=== PATIENT | female | born 1955 | race Caucasian/White ===

== ENCOUNTER → 2019-05-29 | Outpatient (CLI) | payer BC | LOC: CARD 11:12 | PROVIDERS: ATTEND Family Medicine | DX: R00.2 Palpitations (principal) ==

== ENCOUNTER → 2020-09-30 | Outpatient (CLI) | payer BC ==
[~2020-09-30] MED LIST: ATOR40TA70 PO; MTP100TCR PO
== END | disposition home or self-care (01) ==
LOC: PREOP 05:36
PROVIDERS: ATTEND Internal Medicine
DX: Z01.818 Encounter for other preprocedural examination (principal)

== ENCOUNTER 2020-10-01 07:30 | Day surgery (SDC) | payer BC ==
--- NOTE | 2020-09-30 18:42 | HISTORY AND PHYSICAL ---
DATE OF SERVICE: COLONOSCOPY HISTORY AND PHYSICAL DATE OF ADMISSION: ____. HISTORY OF PRESENT ILLNESS: The patient is a 65-year-old white female referred by Dr. Carranza for screening colonoscopy. She reported one other screening colon 13 years ago that she believes was normal. She is deemed to be of average risk as she is not aware of any family history for colon cancer. She does report symptoms suspicious for IBS-D, sometimes, she will have constipation alternating as well with bloating, passage of mucus at times without blood and urgency at times. She reports that her mother has similar symptoms. She denies change in weight or bright red blood per rectum or melena. She is deemed to be in her usual state of health. PAST MEDICAL HISTORY: Significant for hypertension and hyperlipidemia with no known history of coronary artery disease. MEDICATIONS: Include metoprolol succinate 100 mg daily and atorvastatin 10 mg daily. PAST SURGICAL HISTORY: She had a craniotomy in 2000 for what turned out to be a benign growth with no subsequent neurologic problem. SOCIAL HISTORY: She is , employed with no past smoking or drinking history. FAMILY HISTORY: Father in his mid 80s of complications of diabetes and heart disease. Mother is living in her late 80s with history of hypertension, hyperlipidemia and acquired spinal stenosis and with no history of malignancy. One living sibling sister with no reported health problems. REVIEW OF SYSTEMS: CONSTITUTIONAL: The patient denies change in weight, night sweats, chills or fevers, fully COVID vaccinated. PULMONARY: Denies cough, wheezing or shortness of breath. CARDIOVASCULAR: Denies heart racing, palpitation, chest pain, syncope or presyncope. GASTROINTESTINAL: As noted in the HPI. PHYSICAL EXAMINATION: GENERAL: Reveals a well-appearing white female in no acute distress. VITAL SIGNS: Weight 183 pounds. Initial blood pressure 156/86. Repeated 140/82. HEENT: Unremarkable. Sclerae nonicteric. CHEST: Clear. CARDIOVASCULAR: Reveals a regular rate and rhythm without murmur, S3 or S4. ABDOMEN: Soft, supple without mass, organomegaly or tenderness. EXTREMITIES: Reveal no cyanosis, clubbing or edema. ASSESSMENT AND PLAN: The patient is being set up for screening colonoscopy under Diprivan base anesthesia with likely history of IBS-D. Prep instructions and Suprep kit were given and questions were answered. I thank you for the referral of this pleasant lady. Job ID: [id number] DocumentID: [id number] Dictated Date: 09/29/2020 15:23:40 Embalmer/Funeral Director Date: 09/29/2020 15:39:43 Dictated By: CHRISTIANO CHERY MD
[~2020-10-01] VITALS: Ht 170 cm; Wt 82.0 kg
[2020-10-01 07:55] VITALS: BP 180/94
[2020-10-01] MEDS ORDERED: LACTATED RINGERS 1,000 ML IV STA (07:59)
[2020-10-01] MEDS ORDERED: LIDOCAINE JELLY 2% 6 ML SYRINGE MM PRN (08:00)
[2020-10-01] MEDS ORDERED: LACTATED RINGERS 1,000 ML IV ONE (08:05)
--- NOTE | 2020-10-01 08:08 | Pre-Op Note & Conscious Sedat ---
Pre-Operative Progress Note H&P Reviewed The H&P was reviewed, patient examined and no changes noted. Date H&P Reviewed: Oct 01, 2020 Time H&P Reviewed: 07:45 Conscious Sedation Pre-Proced ASA Score 2 For ASA 3 and 4: Consider anesthesia and medical clearance. Also, for patients with a history of failed moderate sedation consider anesthesia. Airway Lungs Heart ASA score ASA 1: a normal healthy patient ASA 2: a patient with a mild systemic disease (mid diabetes, controlled hypertension, obesity ASA 3: a patient with a severe systemic disease that limits activity (angina, COPD, prior Myocardial infarction) ASA 4: a patient with an incapacitating disease that is a constant threat to life (CHF, renal failure) ASA 5: a moribund patient not expected to survive 24 hrs. (ruptured aneurysm) ASA 6: a declared brain- patient whose organs are being harvested. For emergent operations, add the letter E after the classification Mallampati Classification Grade 2 Sedation Plan Analgesia, Amnesia, Plan communicated to team members, Discussed options with patient/fam, Discussed risks with patient/fam The patient is an appropriate candidate to undergo the planned procedure, sedation, and anesthesia. The patient immediately re-assessed prior to indication. CHRISTIANO CHERY MD Oct 01, 2020 08:08
[2020-10-01] MEDS ORDERED: MTP100TCR PO (08:13)
[2020-10-01] MEDS ORDERED: ATOR40TA70 PO (08:13)
[2020-10-01] MEDS ORDERED: PROPOFOL INJECTION 50 ML IV ONE (08:39)
[2020-10-01 08:57] VITALS: BP 120/66
[2020-10-01 09:00] VITALS: BP 123/67
--- NOTE | 2020-10-01 12:56 | Anesthesia-General Post-Op ---
MAC Patient Condition Mental Status/LOC: Same as Preop Cardiovascular: Satisfactory Nausea/Vomiting: Absent Respiratory: Satisfactory Pain: Controlled Complications: Absent Post Op Complications Complications None Follow Up Care/Instructions Patient Instructions None needed. Anesthesiology Discharge Order Discharge Order Patient is doing well, no complaints, stable vital signs, no apparent adverse anesthesia problems. No complications reported per nursing. HERNESTO QUINTANA CRNA Oct 01, 2020 12:56
--- NOTE | 2020-10-01 14:34 | OPERATIVE REPORT ---
DATE OF SERVICE: COLONOSCOPY SUMMARY INDICATION FOR THE PROCEDURE: Screening colon. DESCRIPTION OF PROCEDURE: The patient was placed in the left lateral decubitus position. Prior to undergoing colonoscopy, digital rectal evaluation was performed. Anal sphincter tone was normal and the perianal reflexes intact. No abnormalities were noted on digital inspection of anal canal or distal rectal vault. The colonoscope was then inserted into the rectum and under direct visualization advanced to the cecum. The cecum was identified by identification of the ileocecal valve and cecal strap. Photographic documentation was obtained. Careful inspection was made as the colonoscope was withdrawn. FINDINGS: There was no evidence for internal or external hemorrhoids and the rectum was unremarkable. The sigmoid colon, descending colon, splenic flexure, transverse colon, hepatic flexure and ascending colon were unremarkable. A sessile questionable 3 mm polyp was noted in the cecum that was biopsied and ablated with no subsequent blood loss. ASSESSMENT: One questionable sessile cecal polyp was biopsied and cauterized today with an otherwise normal colonoscopy to the cecum. As long as there are no surprises on histopathology report, we will advocate consideration for a repeat screening colonoscopy in 10 years. I thank you for the referral of this pleasant lady. 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
== END 2020-10-01 09:55 | disposition home or self-care (01) ==
LOC: ENDO 07:30
PROVIDERS: ATTEND Internal Medicine
DX: Z12.11 Encounter for screening for malignant neoplasm of colon (principal); K63.5 Polyp of colon; I10 Essential (primary) hypertension; J45.909 Unspecified asthma, uncomplicated; E78.5 Hyperlipidemia, unspecified; Z79.899 Other long term (current) drug therapy
CPT/HCPCS: 88305

== ENCOUNTER 2021-06-05 10:55 | Emergency (ER) | payer BC ==
[~2021-06-05] VITALS: Ht 170 cm; Wt 82.0 kg
[2021-06-05] MEDS ORDERED: PROMETHAZINE INJ 25 MG/ML (PHENERGAN) AMP IVP ONE ×2 (11:00→13:15)
[2021-06-05] MEDS ORDERED: MECLIZINE 25 MG (ANTIVERT) TAB PO ONE (11:00)
--- NOTE | 2021-06-05 11:06 | ED General ---
General Chief Complaint: Dizziness/Syncope Stated Complaint: NAUSEA/DIZZY Nursing Triage Note: PT TO RM 6 WITH CC OF NVD AND HYPERTENSION Source of Information: Patient Exam Limitations: No Limitations History of Present Illness Date Seen by Provider: Jun 05, 2021 Time Seen by Provider: 11:04 Initial Comments To ER by private vehicle by with reports of sudden onset of dizziness 1 hour ago. She subsequently developed nausea. She has also had diarrhea. She is been vomiting as well. denies any chest pain or shortness of breath or headache. PMH includes HLD, HTN managed with atorvastatin and metoprolol. She took 1 baby aspirin today Timing/Duration: 1 Hour Severity: Moderate Associated Systoms: Denies Symptoms Allergies and Home Medications Allergies Coded Allergies: Tetanus Vaccines and Toxoid (Unverified Allergy, Unknown, 09/30/20) Patient Home Medication List Home Medication List Reviewed: Yes Atorvastatin Calcium (Atorvastatin Calcium) 40 Mg Tablet, 40 MG PO DAILY, (Reported) Entered as Reported by: JENNIFFER MARTIN on 10/01/20 0813 Metoprolol Succinate (Metoprolol Succinate) 100 Mg Tab.er.24h, 100 MG PO DAILY, (Reported) Entered as Reported by: JENNIFFER MARTIN on 10/01/20 0813 Promethazine HCl (Promethazine Tablet) 25 Mg Tablet, 25 MG PO Q6H PRN for NAUSEA/VOMITING Prescribed by: GEMMA JEFF on 06/05/21 1505 Review of Systems Review of Systems Constitutional: see HPI, dizziness EENTM: see HPI Respiratory: no symptoms reported Cardiovascular: no symptoms reported Genitourinary: no symptoms reported Musculoskeletal: no symptoms reported Skin: no symptoms reported Psychiatric/Neurological: No Symptoms Reported Hematologic/Lymphatic: No Symptoms Reported Past Oleqleb-Ikzgjv-Lvxcca Hx Seasonal Allergies Seasonal Allergies: No Past Medical History Surgeries: Yes (CRAINIOTOMY) Respiratory: No Cardiac: No Neurological: No Genitourinary: No Gastrointestinal: No Musculoskeletal: No Endocrine: No HEENT: No Cancer: No Psychosocial: No Integumentary: No Blood Disorders: No Physical Exam Vital Signs Vital Signs - First Documented 06/05/21 10:58 Temp 35.4 Pulse 76 Resp 18 B/P (MAP) 212/108 (142) Pulse Ox 100 O2 Delivery Room Air Capillary Refill : Less Than 3 Seconds Height, Weight, BMI Height: '" Weight: lbs. oz. kg; 28.00 BMI Method: General Appearance: WD/WN, Other (Keeps eyes closed as this improves her dizziness but when they are open she does have horizontal nystagmus. Alert and oriented very pleasant. Unable to walk to the room she arrived by wheelchair. She is hypertensive at 212/108) Eyes: Bilateral Eye Normal Inspection, Bilateral Eye PERRL HEENT: PERRL/EOMI, TMs Normal, Other (She has unidirectional nystagmus with the fast phase beat to the right that intensifies when her eyes are fixed to the right. The nystagmus appears nearly absent when she looks all the way to the left. There is no vertical skew. These findings support this being a julieth pheral vertigo rather than a central vertigo.) Neck: Full Range of Motion, Normal Inspection Respiratory: No Accessory Muscle Use, No Respiratory Distress Cardiovascular: Regular Rate, Rhythm, Normal Peripheral Pulses Gastrointestinal: Normal Bowel Sounds, Non Tender, Soft Neurologic/Psychiatric: Alert, Oriented x3 Skin: Normal Color, Warm/Dry Progress/Results/Core Measures Suspected Sepsis SIRS Temperature: Pulse: 76 Respiratory Rate: 18 Laboratory Tests 06/05/21 11:05: White Blood Count 8.2 Blood Pressure 212 /108 Mean: 142 Laboratory Tests 06/05/21 11:05: Creatinine 0.80, INR Comment 0.9, Platelet Count 341, Total Bilirubin 0.6 Results/Orders Lab Results Laboratory Tests Test 06/05/21 11:02 06/05/21 11:05 06/05/21 13:19 Range/Units Glucometer 138 H 70-110 MG/DL White Blood Count 8.2 4.3-11.0 10^3/uL Red Blood Count 5.29 H 3.80-5.11 10^6/uL Hemoglobin 15.4 11.5-16.0 g/dL Hematocrit 46 35-52 % Mean Corpuscular Volume 88 80-99 fL Mean Corpuscular Hemoglobin 29 25-34 pg Mean Corpuscular Hemoglobin Concent 33 32-36 g/dL Red Cell Distribution Width 12.3 10.0-14.5 % Platelet Count 341 130-400 10^3/uL Mean Platelet Volume 9.2 9.0-12.2 fL Immature Granulocyte % (Auto) 0 % Neutrophils (%) (Auto) 66 42-75 % Lymphocytes (%) (Auto) 23 12-44 % Monocytes (%) (Auto) 7 0-12 % Eosinophils (%) (Auto) 2 0-10 % Basophils (%) (Auto) 1 0-10 % Neutrophils # (Auto) 5.5 1.8-7.8 10^3/uL Lymphocytes # (Auto) 1.9 1.0-4.0 10^3/uL Monocytes # (Auto) 0.6 0.0-1.0 10^3/uL Eosinophils # (Auto) 0.2 0.0-0.3 10^3/uL Basophils # (Auto) 0.1 0.0-0.1 10^3/uL Immature Granulocyte # (Auto) 0.0 0.0-0.1 10^3/uL Prothrombin Time 12.6 12.2-14.7 SEC INR Comment 0.9 0.8-1.4 Activated Partial Thromboplast Time 25 24-35 SEC D-Dimer 0.32 0.00-0.49 UG/ML Sodium Level 140 135-145 MMOL/L Potassium Level 3.7 3.6-5.0 MMOL/L Chloride Level 103 98-107 MMOL/L Carbon Dioxide Level 23 21-32 MMOL/L Anion Gap 14 5-14 MMOL/L Blood Urea Nitrogen 11 7-18 MG/DL Creatinine 0.80 0.60-1.30 MG/DL Estimat Glomerular Filtration Rate 83 BUN/Creatinine Ratio 14 Glucose Level 163 H 70-105 MG/DL Calcium Level 9.5 8.5-10.1 MG/DL Corrected Calcium 9.2 8.5-10.1 MG/DL Total Bilirubin 0.6 0.1-1.0 MG/DL Aspartate Amino Transf (AST/SGOT) 35 H 5-34 U/L Alanine Aminotransferase (ALT/SGPT) 46 0-55 U/L Alkaline Phosphatase 109 40-136 U/L Troponin I < 0.028 <0.028 NG/ML Total Protein 7.9 6.4-8.2 GM/DL Albumin 4.4 3.2-4.5 GM/DL Urine Color YELLOW Urine Clarity CLEAR Urine pH 8.5 5-9 Urine Specific [place] 1.015 L 1.016-1.022 Urine Protein NEGATIVE NEGATIVE Urine Glucose (UA) NEGATIVE NEGATIVE Urine Ketones NEGATIVE NEGATIVE Urine Nitrite NEGATIVE NEGATIVE Urine Bilirubin NEGATIVE NEGATIVE Urine Urobilinogen 0.2 < = 1.0 MG/DL Urine Leukocyte Esterase NEGATIVE NEGATIVE Urine RBC (Auto) NEGATIVE NEGATIVE Urine RBC NONE /HPF Urine WBC NONE /HPF Urine Squamous Epithelial Cells NONE /HPF Urine Crystals NONE /LPF Urine Bacteria TRACE /HPF Urine Casts NONE /LPF Urine Mucus NEGATIVE /LPF Urine Culture Indicated NO My Orders Orders - GEMMA JEFF APRN Ct Angio Head/Neck (06/05/21 11:00) Cbc With Automated Diff (06/05/21 11:00) Protime With Inr (06/05/21 11:00) Partial Thromboplastin Time (06/05/21 11:00) Comprehensive Metabolic Panel (06/05/21 11:00) Fibrin Degradation Products (06/05/21 11:00) Troponin I [place] (06/05/21 11:00) Ua Culture If Indicated (06/05/21 11:00) Chest 1 View, Ap/Pa Only (06/05/21 11:00) Ekg Tracing (06/05/21 11:00) Accucheck Stat ONCE (06/05/21 11:00) Ed Iv/Invasive Line Start (06/05/21 11:00) Ed Iv/Invasive Line Start (06/05/21 11:00) Vital Signs Stroke Patient Q15M (06/05/21 11:00) O2 (06/05/21 11:00) Intake & Output 06,14, (06/05/21 11:00) Monitor-Rhythm Ecg Trace Only (06/05/21 11:00) Dysphagia Screening Tool (06/05/21 11:00) Post Thrombolytic Adminstratio (06/05/21 11:00) Lipid Panel (06/06/21 06:00) Promethazine Injection (Phenergan Injec (06/05/21 11:00) Meclizine Tablet (Antivert Tablet) (06/05/21 11:00) Lactated Ringers (Lr 1000 Ml Iv Solution (06/05/21 11:00) Iohexol Injection (Omnipaque 350 Mg/Ml 1 (06/05/21 11:30) Received Contrast (Hold Metformin- Contr (06/05/21 11:30) Ns (Ivpb) (Sodium Chloride 0.9% Ivpb Bag (06/05/21 11:30) Scopolamine Patch (Transderm-Scop Patch) (06/05/21 13:15) Ondansetron Injection (Zofran Injectio (06/05/21 13:15) Promethazine Injection (Phenergan Injec (06/05/21 13:15) Lactated Ringers (Lr 1000 Ml Iv Solution (06/05/21 13:45) Metoprolol Succinate (Xl) Tab (Toprol Xl (06/05/21 15:00) Medications Given in ED Current Medications Medications Dose Ordered Sig/Lopez Route Start Time Stop Time Status Last Admin Dose Admin Iohexol 100 ml ONCE ONCE IV 06/05/21 11:30 06/05/21 11:31 DC 06/05/21 11:58 75 ML Meclizine HCl 25 mg ONCE ONCE PO 06/05/21 11:00 06/05/21 11:04 DC 06/05/21 11:08 25 MG Metoprolol Succinate 100 mg ONCE ONCE PO 06/05/21 15:00 06/05/21 15:01 DC 06/05/21 15:00 100 MG Ondansetron HCl 8 mg ONCE ONCE IVP 06/05/21 13:15 06/05/21 13:16 DC 06/05/21 13:27 8 MG Promethazine HCl 12.5 mg ONCE ONCE IVP 06/05/21 11:00 06/05/21 11:04 DC 06/05/21 11:08 12.5 MG Promethazine HCl 12.5 mg ONCE ONCE IVP 06/05/21 13:15 06/05/21 13:16 DC 06/05/21 13:27 12.5 MG Scopolamine 1.5 mg ONCE ONCE TD 06/05/21 13:15 06/05/21 13:16 DC 06/05/21 13:27 1.5 MG Sodium Chloride 100 ml ONCE ONCE IV 06/05/21 11:30 06/05/21 11:31 DC 06/05/21 11:58 80 ML Vital Signs/I&O 06/05/21 10:58 Temp 35.4 Pulse 76 Resp 18 B/P (MAP) 212/108 (142) Pulse Ox 100 O2 Delivery Room Air Capillary Refill : Less Than 3 Seconds Blood Pressure Mean: 142 Departure Communication (Admissions) NAME: COLT CHAVES [facility] REC#: [id number] PT STATUS: REG ER : 1955 PHYSICIAN: GEMMA JEFF APRN ADMIT DATE: 06/05/21/ER Draft Date of Exam:06/05/21 CHEST 1 VIEW, AP/PA ONLY EXAMINATION: Chest 1 view HISTORY: Vertigo COMPARISON: None available. FINDINGS: The lungs are clear without edema or pneumonia. No pleural effusion or pneumothorax. Heart size is normal. IMPRESSION: 1. Clear lungs. Dictated on workstation # [id number] Dict: 06/05/21 1326 Trans: 06/05/21 1327 CVB [id number] Interpreted by: ESTUARDO SCHWARZ MD Electronically signed by: [id number] EKG shows sinus rhythm at [address] segment change 1311-BP 164/98 without tx here. 1434-blood pressure down to 172/90 no treatment here. Heart rate 73. Nausea is gone. Dizziness persists. She still has horizontal nystagmus. We will give her daily dose of metoprolol here since her nausea is controlled. If she is able to tolerate p.o. then will discharge home. Impression Primary Impression: Vertigo Disposition: 01 HOME, SELF-CARE Condition: Stable Departure-Patient Inst. Decision time for Depature: 13:59 Referrals: RENNY PEDERSON MD (PCP/Family) Primary Care Physician Patient Instructions: Vertigo (a Type of Dizziness) (DC) Add. Discharge Instructions: 1. Return to ER for any concerns. Follow-up with Dr. Pederson tomorrow. If you have ongoing symptoms he may schedule an MRI. Medication as directed. Return to ER for any worsening. All discharge instructions reviewed with patient and/or family. Voiced understanding. Scripts Promethazine HCl (Promethazine Tablet) 25 Mg Tablet 25 MG PO Q6H PRN for NAUSEA/VOMITING, #20 TAB Prov: GEMMA JEFF APRN 06/05/21 Work/School Note: Work Release Form Date Seen in the Emergency Department: Jun 05, 2021 Return to Work: Jun 08, 2021 Copy Copies To 1: RENNY PEDERSON MD, PETER J APRN Jun 05, 2021 11:06
[2021-06-05] MEDS: LACTATED RINGERS 1,000 ML IV SCH ×2 (11:08→13:28)
[2021-06-05 11:23] LABS: BASOPHILS # (AUTO) 0.1 10^3/uL (0.0-0.1); BASOPHILS % (AUTO) 1 % (0-10); EOSINOPHILS # (AUTO) 0.2 10^3/uL (0.0-0.3); EOSINOPHILS % (AUTO) 2 % (0-10); HEMATOCRIT 46 % (35-52); HEMOGLOBIN 15.4 g/dL (11.5-16.0); LYMPHOCYTES # (AUTO) 1.9 10^3/uL (1.0-4.0); LYMPHOCYTES % (AUTO) 23 % (12-44); MEAN CORPUSCULAR HEMOGLOBIN 29 pg (25-34); MEAN CORPUSCULAR HGB CONC 33 g/dL (32-36); MEAN CORPUSCULAR VOLUME 88 fL (80-99); MEAN PLATELET VOLUME 9.2 fL (9.0-12.2); MONOCYTES # (AUTO) 0.6 10^3/uL (0.0-1.0); MONOCYTES % (AUTO) 7 % (0-12); NEUTROPHILS # (AUTO) 5.5 10^3/uL (1.8-7.8); NEUTROPHILS % (AUTO) 66 % (42-75); PLATELET COUNT 341 10^3/uL (130-400); WHITE BLOOD COUNT 8.2 10^3/uL (4.3-11.0)
[2021-06-05] MEDS ORDERED: NS 100 ML (IVPB) BAG IV ONE (11:30)
[2021-06-05] MEDS ORDERED: IOHEXOL 350 MG/ML 100 ML (OMNIPAQUE 350) VIAL IV ONE (11:30)
[2021-06-05] MEDS ORDERED: HOLD METFORMIN - RECEIVED CONTRAST 20 ML VIAL IV SCH (11:30)
[2021-06-05 11:36] LABS: FIBRIN DEGRADATION PRODUCTS 0.32 UG/ML (0.00-0.49); INR 0.9 (0.8-1.4); PROTHROMBIN TIME PATIENT 12.6 SEC (12.2-14.7)
[2021-06-05 11:47] LABS: ALANINE AMINOTRANSFERASE 46 U/L (0-55); ALKALINE PHOSPHATASE 109 U/L (40-136); BILIRUBIN,TOTAL 0.6 MG/DL (0.1-1.0); BUN/CREATININE RATIO 14; CALCIUM 9.5 MG/DL (8.5-10.1); CARBON DIOXIDE 23 MMOL/L (21-32); CHLORIDE 103 MMOL/L (98-107); GFR ESTIMATED 83; GLUCOSE 163 MG/DL (70-105); POTASSIUM 3.7 MMOL/L (3.6-5.0); SODIUM 140 MMOL/L (135-145); TOTAL PROTEIN 7.9 GM/DL (6.4-8.2)
[2021-06-05 11:48] LABS: ALBUMIN 4.4 GM/DL (3.2-4.5)
--- NOTE | 2021-06-05 13:10 | Diagnostic Imaging Report ---
PROCEDURE: CT angiography of the head and CT angiography of the neck with and without contrast. TECHNIQUE: Contiguous noncontrast images were obtained from the skull base through the vertex. After intravenous contrast administration, helical CT angiography of the neck was performed. Source data was reformatted into 3D MIP projections. Delayed post contrast acquisition was also obtained. Auto Exposure Controls were utilized during the CT exam to meet ALARA standards for radiation dose reduction. INDICATION: Nausea, vomiting, hypertension. There are no prior studies available for comparison. The CT head exam performed prior to the intravenous contrast administration shows no evidence for a mass, shift of midline or hemorrhage that would indicate an acute abnormality. The ventricles are not abnormally dilated. There is a vague area of diminished density involving the left frontal lobe near the vertex of the skull. 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 The bone windows are unremarkable for a skull fracture. However near the vertex of the skull in the left frontoparietal region, there is some deformity of the outer table of the skull. Furthermore in this area within the calvarium itself, there is a 1.1 x 2.8 cm area of increased density. This finding could be a sequela of prior trauma and/or surgery. It would be unlikely that this is a bony lesion arising from the calvarium. Correlation with patient's surgical history would be recommended. The orbits are symmetrical and within normal limits. The sinuses are generally clear although there is a 2 cm retention cyst in the floor of the right maxillary antrum. On the postcontrast images to the brain there is no evidence for a large vessel occlusion. There is no sign of an aneurysm of the [place] either. There is mild atherosclerotic plaque involving both carotid bifurcations but there is no evidence for hemodynamically significant stenosis of the common or internal carotid arteries. The vertebrobasilar arteries are all opacified and seem codominant. No mass or adenopathy involving the neck. However the right lobe of the thyroid is enlarged and there is a 1.1 cm fairly well-circumscribed area of low density within the right lobe of the thyroid. A non-emergent thyroid ultrasound exam would be recommended for further evaluation. Lung apices where visualized are clear. The bone windows of the cervical spine are unremarkable for fracture or for destructive lesion. IMPRESSION: 1. There is no evidence for a large vessel occlusion, nor is there any sign of an aneurysm of the [place]. If clinical concern regarding an underlying abnormality persists however, MRI would be recommended for further study. 2. There is no hemo-dynamically significant stenosis of the common or internal carotid arteries. 3. The vertebral arteries are codominant and appear opacified. 4. The defect in the left frontal parietal bone near the vertex the skull is of uncertain etiology. Considerations and recommendations as above. 5. The right lobe of the thyroid is enlarged and there is a low density lesion within the right lobe. A dedicated thyroid ultrasound exam would be recommended for further study. 6. These results were discussed with Suman Louis APRN. Dictated by: Dictated on workstation # [id number]
[2021-06-05] MEDS ORDERED: ONDANSETRON 4 MG/2 ML (SDV) Z0FRAN IVP ONE (13:15)
[2021-06-05] MEDS ORDERED: SCOPOLAMINE 1.5 MG (TRANSDERM-SCOP) PATCH TD ONE (13:15)
--- NOTE | 2021-06-05 13:27 | Diagnostic Imaging Report ---
EXAMINATION: Chest 1 view HISTORY: Vertigo COMPARISON: None available. FINDINGS: The lungs are clear without edema or pneumonia. No pleural effusion or pneumothorax. Heart size is normal. IMPRESSION: 1. Clear lungs. Dictated by: Dictated on workstation # [id number]
[2021-06-05 13:28] LABS: BILIRUBIN,URINE NEGATIVE (NEGATIVE); CLARITY,URINE CLEAR; COLOR,URINE YELLOW; GLUCOSE, URINE (UA) NEGATIVE (NEGATIVE); KETONES,URINE NEGATIVE (NEGATIVE); LEUKOCYTE ESTERASE ,URINE NEGATIVE (NEGATIVE); NITRITE,URINE NEGATIVE (NEGATIVE); PH,URINE 8.5 (5-9); PROTEIN,URINE NEGATIVE (NEGATIVE)
[2021-06-05 13:37] LABS: BACTERIA,URINE TRACE /HPF
[2021-06-05] MEDS ORDERED: LACTATED RINGERS 1,000 ML IV SCH (13:45)
[2021-06-05] MEDS ORDERED: meTOprolol SUCCINATE 100 MG (TOPROL XL) TAB PO ONE (15:00)
[2021-06-05] MEDS ORDERED: PROM25TA14 PO (15:05)
[2021-06-05 15:30] VITALS: BP 170/96
== END 2021-06-05 15:30 | disposition home or self-care (01) ==
LOC: EDUNIT# 10:55 → ER 10:57
DX: R42 Dizziness and giddiness (principal); E78.5 Hyperlipidemia, unspecified; I10 Essential (primary) hypertension
CPT/HCPCS: 36415; 70496; 70498; 71045; 80053; 81000; 82947; 84484; 85025; 85379; 85610; 85730; 93005; 93041

== ENCOUNTER → 2021-07-15 | Outpatient (CLI) | payer BC ==
[~2021-07-15] MED LIST changes: +PROM25TA14 PO
--- NOTE | 2021-07-15 10:43 | Diagnostic Imaging Report ---
PROCEDURE: US carotid duplex, bilateral. INDICATION: 66-year-old female, dizziness, hypertension. TECHNIQUE: Multiple real-time grayscale images were obtained over the carotid arteries in various projections bilaterally. Additional spectral analysis and color Doppler and Duplex images were also obtained. CORRELATION: None FINDINGS: Right carotid circulation: There is mild atherosclerotic plaque at the carotid bifurcation. The right common carotid artery is normal in course and caliber. The right internal carotid artery is patent. No hemodynamically significant stenosis is present at this time. Right external carotid artery is patent. Left carotid circulation: There is mild atherosclerotic plaque at the carotid bifurcation. The left common carotid artery is normal in course and caliber. The left internal carotid artery is patent. No hemodynamically significant stenosis is present at this time. Left external carotid artery is patent. Antegrade flow in the bilateral vertebral arteries. DOPPLER (peak systolic velocity M/S Right Left CCA .68 .71 ICA Proximal .57 .76 ICA Mid .80 .75 ICA Distal .64 .78 RATIO 1.2 1.1 ECA .81 .81 VERT .58 .60 IMPRESSION: 1. Mild atherosclerosis involving bilateral carotid bifurcations. 2. No sonographic evidence to suggest a hemodynamically significant stenosis of the internal carotid arteries at this time. Parameters based on the consensus panel Cunningham-Scale and Doppler ultrasound criteria published February 2003, Radiology, Volume 229. Dictated by: Dictated on workstation # [id number]
== END ==
LOC: RAD 09:45
PROVIDERS: ATTEND Family Medicine
DX: I65.23 Occlusion and stenosis of bilateral carotid arteries (principal); I10 Essential (primary) hypertension
CPT/HCPCS: 93880

== ENCOUNTER → 2021-08-01 | Outpatient (CLI) | payer BC ==
[~2021-08-01] MED LIST changes: +CATHETER FLUSH 10 ML SYR IV PRN; +HOLD METFORMIN - RECEIVED CONTRAST 20 ML VIAL IV SCH; +IOHEXOL 350 MG/ML 100 ML (OMNIPAQUE 350) VIAL IV ONE; +NS 100 ML (IVPB) BAG IV ONE
[2021-08-01 10:31] LABS: ALBUMIN 4.2 GM/DL (3.2-4.5); BILIRUBIN,TOTAL 0.8 MG/DL (0.1-1.0); CALCIUM 9.5 MG/DL (8.5-10.1); CREATININE SERUM 0.85 MG/DL (0.60-1.30); POTASSIUM 4.8 MMOL/L (3.6-5.0); TOTAL PROTEIN 7.3 GM/DL (6.4-8.2)
--- NOTE | 2021-08-01 12:58 | Diagnostic Imaging Report ---
INDICATION: Increasing blood pressure. TECHNIQUE: Axial imaging through the abdomen was performed after the administration of intravenous contrast utilizing the CT angiography protocol. Multiplanar and 3D MIP reformations were also performed. FINDINGS: The lung bases are clear. The liver does show generalized low density, consistent with hepatic steatosis. No discrete liver mass is identified. The gallbladder is unremarkable. There is no biliary ductal dilatation. The pancreas and spleen are unremarkable. No adrenal mass is identified. The kidneys contain small cortical low-attenuation lesions, particularly on the left side, too small to characterize. The aorta is nonaneurysmal. The aorta does show some atherosclerotic changes. There is a single renal artery on the right which appears to be widely patent. There are two small renal arteries on the left, both of which appear to be widely patent. The celiac, SMA, and MONET are widely patent. The bowel loops are of normal caliber. There is no free fluid or fluid collection identified. The bony structures are nonacute. There is a probable hemangioma involving the T12 vertebral body. IMPRESSION: 1. Hepatic steatosis. 2. No evidence of renal artery stenosis. Dictated by: Dictated on workstation # [id number]
== END ==
LOC: RAD 09:45
PROVIDERS: ATTEND Family Medicine
DX: I10 Essential (primary) hypertension (principal)
CPT/HCPCS: 36415; 74175; 80053

== ENCOUNTER 2022-04-19 17:32 | Emergency (ER) | payer BC ==
[~2022-04-19] VITALS: Ht 170 cm; Wt 82.0 kg
[~2022-04-19 17:32] MED LIST changes: -CATHETER FLUSH 10 ML SYR IV PRN; -HOLD METFORMIN - RECEIVED CONTRAST 20 ML VIAL IV SCH; -IOHEXOL 350 MG/ML 100 ML (OMNIPAQUE 350) VIAL IV ONE; -NS 100 ML (IVPB) BAG IV ONE
--- NOTE | 2022-04-19 18:04 | ED EENT ---
History of Present Illness General Chief Complaint: Oral/Throat Problems Stated Complaint: SORE THROAT,BLEEDING FROM THROAT Nursing Triage Note: Pt ambulated to room 07 w c/o sore throat with some bleeding that started yesterday morning. Source: patient History of Present Illness Date Seen by Provider: Apr 19, 2022 Time Seen by Provider: 17:51 Initial Comments PT ARRIVES VIA POV FROM HOME C/O MILD SORE THROAT AND HER VOICE IS A LITTLE RASPY SINCE YESTERDAY MORNING THINKS SHE IS HAVING BLEEDING FROM HER THROAT BECAUSE SHE CAN TASTE BLOOD NO DIFFICULTY SWALLOWING HAS HAD MILD RUNNY NOSE AND SLIGHT COUGH FOR A FEW DAYS NO FEVER NO SHORTNESS OF BREATH NO NAUSEA/VOMITING PT IS NOT ON ASPIRIN OR BLOOD THINNERS NO HISTORY OF SIMILAR HAS NOT TAKEN ANYTHING FOR SYMPTOMS SYMPTOMS NO DIFFERENT TONIGHT HAS NOT SOUGHT CARE UNTIL TONIGHT PT HAS HAD COVID VACCINE X 3, AND FLU VACCINE FOR THIS SEASON PCP: DR. PEDERSON Allergies and Home Medications Allergies Coded Allergies: Tetanus Vaccines and Toxoid (Unverified Allergy, Unknown, 09/30/20) Patient Home Medication List Home Medication List Reviewed: Yes Amoxicillin (Amoxicillin) 875 Mg Tablet, 875 MG PO BID Prescribed by: CLIFFORD APONTE on 04/19/22 184 Atorvastatin Calcium (Atorvastatin Calcium) 40 Mg Tablet, 40 MG PO DAILY, (Reported) Entered as Reported by: JENNIFFER MARTIN on 10/01/20 08 Methylprednisolone (Medrol) 4 Mg Tab.ds.pk, 4 MG PO UD Prescribed by: CLIFFORD APONTE on 04/19/22 184 Metoprolol Succinate (Metoprolol Succinate) 100 Mg Tab.er.24h, 100 MG PO DAILY, (Reported) Entered as Reported by: JENNIFFER MARTIN on 10/01/20 0813 Promethazine HCl (Promethazine Tablet) 25 Mg Tablet, 25 MG PO Q6H PRN for NAUSEA/VOMITING Prescribed by: GEMMA JEFF on 06/05/21 1505 Review of Systems Review of Systems Constitutional: no symptoms reported Eyes: No Symptoms Reported Ears: No Symptoms Reported Nose: see HPI, clear discharge Mouth: no symptoms reported Throat: see HPI, pain; denies painful swallowing, denies difficulty with fluids Respiratory: see HPI, cough; No short of breath Cardiovascular: no symptoms reported Gastrointestinal: no symptoms reported Musculoskeletal: no symptoms reported Skin: no symptoms reported Neurological: No Symptoms Reported Hematologic/Lymphatic: No Symptoms Reported Immunological/Allergic: no symptoms reported Past Qfskxti-Kwlxep-Esyffq Hx Patient Social History Tobacco Use?: No Substance use?: No Alcohol Use?: No Immunizations Up To Date First/Initial COVID19 Vaccinat: YES Second COVID19 Vaccination Jett: YES Third COVID19 Vaccination Date: YES COVID19 Vaccine Lead Auditor: Moderna Seasonal Allergies Seasonal Allergies: No Past Medical History Surgery/Hospitalization HX: CARANIOTOMY Surgeries: Yes (CRANIOTOMY FOR BENIGN TUMOR) Neurological Respiratory: No Cardiac: Yes High Cholesterol, Hypertension Neurological: Yes (CRANIOTOMY FOR BENIGN TUMOR) Brain Tumor 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 oz. kg; 28.00 BMI Method: General Appearance: WD/WN, no apparent distress Eyes: bilateral eye normal inspection Ears: bilateral ear auricle normal Nose: normal inspection Mouth/Throat: other (MILD ERYTHEMA TO POSTERIOR PHARYNX. NO BLOOD IN MOUTH OR POSTERIOR PHARYNX,. MILD NASAL CONGESTION AND CLEAR POST NASAL DRAINAGE. NO SINUS TENDERNESS. VOICE IS VERY SLIGHTLY RASPY) Neck: normal inspection Cardiovascular: regular rate, rhythm, no murmur Respiratory: normal breath sounds, no respiratory distress, no accessory muscle use Gastrointestinal: soft Neurologic/Psychiatric: thread trimmer II-XII nml as tested, no motor/sensory deficits, alert, normal mood/affect, oriented x 3 Skin: normal color, warm/dry Progress/Results/Core Measures Results/Orders Lab Results Laboratory Tests Test 04/19/22 18:03 Range/Units Influenza Type A (RT-PCR) Not Detected Not Detecte Influenza Type B (RT-PCR) Not Detected Not Detecte SARS-CoV-2 RNA (RT-PCR) Not Detected Not Detecte Group A Streptococcus Screen NEGATIVE NEGATIVE My Orders Orders - CLIFFORD APONTE DO Rapid Strep A Screen (04/19/22 17:58) Covid 19 Inhouse Test (04/19/22 17:58) Influenza A And B By Pcr (04/19/22 17:58) Isolation Central Supply Req (04/19/22 17:58) Rx-Amoxicillin Capsule (Rx-Polymox Capsu (04/19/22 18:45) Vital Signs/I&O 04/19/22 17:45 Temp 36.4 Pulse 69 Resp 20 B/P (MAP) 173/99 (123) Pulse Ox 99 O2 Delivery Room Air Blood Pressure Mean: 123 Progress Progress Note : Progress Note PPE WORN COVID, FLU AND STREP TESTING DONE OFFERED TO DO ADDITIONAL TESTING SUCH LAB AND CT SCAN OF NECK AND PT OPTS TO TRY ANTIBIOTICS FIRST. REVIEWED TEST RESULTS, ANTICIPATED COURSE, SYMPTOMATIC TREATMENT, NEED FOR FOLLOW UP AND RETURN PRECAUTIONS DISCUSSED WITH PT Departure Impression Primary Impression: Pharyngitis Disposition: 01 HOME, SELF-CARE Condition: Stable Departure-Patient Inst. Decision time for Depature: 18:43 Referrals: RENNY PEDERSON MD (PCP/Family) Primary Care Physician Patient Instructions: Sore Throat, Adult ED Add. Discharge Instructions: FREQUENT SALT WATER GARGLES TYLENOL AND MOTRIN NEEDED FOR PAIN FOLLOW UP WITH YOUR DR IN 3-4 DAYS IF NO BETTER, RETURN TO ER IF WORSE All discharge instructions reviewed with patient and/or family. Voiced understanding. Scripts Methylprednisolone (Medrol) 4 Mg Tab.ds.pk 4 MG PO UD for 6 Days, #21 PKG PER DOSE PACK INSTRUCTIONS Prov: CLIFFORD APONTE DO 04/19/22 Amoxicillin (Amoxicillin) 875 Mg Tablet 875 MG PO BID, #20 TAB Prov: CLIFOFRD APONTE DO 04/19/22 CLIFFORD APONTE DO Apr 19, 2022 18:04
[2022-04-19] MEDS ORDERED: AMOX875T2 PO ×2 (18:44→18:46)
[2022-04-19] MEDS ORDERED: METH4TAB PO ×2 (18:44→18:46)
[2022-04-19] MEDS ORDERED: RX-AMOXICILLIN 500 MG CAP #3 PPK PO STA (18:45)
[2022-04-19 18:55] VITALS: BP 173/99
== END 2022-04-19 18:55 | disposition home or self-care (01) ==
LOC: EDUNIT# 17:32 → ER 17:34
DX: J02.9 Acute pharyngitis, unspecified (principal); Z20.822 Contact with and (suspected) exposure to COVID-19
CPT/HCPCS: 87430; 87636; 99283

== ENCOUNTER → 2022-10-24 | Outpatient (CLI) | payer MEDICARE ==
[~2022-10-24] MED LIST changes: +AMOX875T2 PO; +METH4TAB PO
--- NOTE | 2022-10-24 12:24 | Diagnostic Imaging Report ---
INDICATION: Postmenopausal screening COMPARISON: Baseline FINDINGS: AP Spine L1-L4: [BMD (g/cm2): 1.197] [T-Score: 0.0] [Z-Score: 1.0] [BMD Previous: NA] [BMD % Change: NA] LT Hip Neck: [BMD (g/cm2): 0.919] [T-Score: -0.9] [Z-Score: 0.3] LT Hip Total: [BMD (g/cm2):1.004] [T-Score:0.0] [Z-Score: 0.8] [BMD Previous: NA] [BMD % Change: NA] RT Hip Neck: [BMD (g/cm2):0.864] [T-Score:-1.3] [Z-Score:-0.1] RT Hip Total: [BMD (g/cm2):0.956] [T-score:-0.4] [Z-Score:0.4] [BMD Previous:NA] [BMD % Change:NA] *Indicates significant change from prior examination based on 95% confidence level. World Health Organization criteria for BMD interpretation classify patients as Normal (T-score at or above -1.0), Osteopenic (T-score between -1.0 and -2.5) or Osteoporotic (T-score at or below -2.5). LIMITATIONS AND MODIFICATION: None. FRACTURE RISK (FRAX SCORE): The ten year probability of (%): Major Osteoporotic Fracture: [8.3] Hip Fracture: [0.7] IMPRESSION: 1. Osteopenia (Low bone mass). 2. Baseline examination. 3. See below National Osteoporosis Foundation guidelines on when to potentially initiate pharmacologic therapy. Based on the National Osteoporosis Foundation Guidelines, pharmacologic treatment should be initiated in any of the following, unless clinical conditions suggest otherwise: * Any patient with prior fragility fracture of the hip or vertebrae. A spine fracture indicates 5X risk for subsequent spine fracture and 2X risk for subsequent hip fracture. * Osteoporosis (T-score <-2.5). * Postmenopausal women and men age 50 and older with low bone mass/osteopenia (T-score between -1.0 and -2.5) by DXA and 10-year major osteoporotic fracture greater than 20% or a 10-year probability of hip fracture greater than 3%. These fracture risks are supplied above in the FRAX score, if applicable. * Clinician judgement and/or patient preferences may indicate treatment for people with 10-year fracture probabilities above or below these levels. Dictated by: Dictated on workstation # [id number]
--- NOTE | 2022-10-24 13:50 | Diagnostic Imaging Report ---
INDICATION: Routine screening. Comparison is made with prior mammogram from 02/03/2014. 2-D and 3-D bilateral screening mammography was performed with CAD. The current study was also evaluated with a Computer Aided Detection (CAD) system. Scattered fibroglandular densities are identified bilaterally. No mass or malignant-appearing microcalcifications are identified. Occasional benign calcifications are noted. Axillae are unremarkable. IMPRESSION: BI-RADS Category 2 No mammographic features suspicious for malignancy are identified. ACR BI-RADS Category 2: Benign findings. Result letter will be mailed to the patient. Note: At least 10% of breast cancer is not imaged by mammography. Dictated by: Dictated on workstation # [id number]
== END ==
LOC: RAD 10:45
PROVIDERS: ATTEND Obstetrics & Gynecology
DX: Z12.31 Encounter for screening mammogram for malignant neoplasm of breast (principal); Z13.820 Encounter for screening for osteoporosis; M85.80 Other specified disorders of bone density and structure, unspecified site; Z78.0 Asymptomatic menopausal state
CPT/HCPCS: 77063; 77067; 77080